=== PATIENT | male | born 1955 | race Caucasian/White ===

== ENCOUNTER 2017-12-28 09:49 | Emergency (ER) | payer OTHER ==
[~2017-12-28] VITALS: Ht 188 cm; Wt 99.2 kg
[2017-12-28 09:55] VITALS: BP 175/73; PULSE 93; RESP 16; TEMP 97.3; O2SAT 100
[2017-12-28] MEDS ORDERED: ROBA750T PO (10:21)
[2017-12-28] MEDS ORDERED: IBUP1TAB7 PO (10:21)
--- NOTE | 2017-12-28 10:22 | PD ---
HPI Chief Complaint: Back/ Neck Pain or Injury Time Seen by Provider: 10:06 Travel History International Travel<30 days: No Contact w/Intl Traveler<30days: No Traveled to known affect area: No History of Present Illness HPI This is a 62-year-old male with right-sided low back pain radiating down into the right leg. He reports this is "sciatica". He has had 2 similar episodes in the past. He was krystal several days ago when he twisted his back and had immediate pain in his right buttocks region. He reports the pain radiates down into the leg. No paresthesia or weakness. No fever chills. No incontinence. No saddle or seizure. He has moderate. Elevated by movement and slightly depressed. PFSH Past Medical History Medical History: Denies Significant Hx Tetanus Vaccination: > 5 Years Influenza Vaccination: No Past Surgical History Surgical History: No Previous Surgery Social History Alcohol Use: Yes (WEEKLY) Tobacco Use: No Substance Use: No Allergies-Medications (Allergen,Severity, Reaction): Coded Allergies: No Known Allergies (Unverified , 12/28/17) Reported Meds & Prescriptions Reported Meds & Active Scripts Active Robaxin (Methocarbamol) 750 Mg Tab 750 Mg PO QID Ibuprofen 800 Mg Tab 800 Mg PO Q6HR PRN Review of Systems Except as stated in HPI: all other systems reviewed are Neg General / Constitutional: No: Fever Eyes: No: Visual changes HENT: No: Headaches Cardiovascular: No: Chest Pain or Discomfort Respiratory: No: Shortness of Breath Gastrointestinal: No: Abdominal Pain Genitourinary: No: Dysuria Musculoskeletal: Positive: Pain (right low back) Neurologic: No: Weakness Physical Exam Narrative GENERAL: Alert and well-appearing 60-year-old male. SKIN: Warm and dry. HEAD: Normocephalic. EYES: No injection or drainage. NECK: Supple, trachea midline. No JVD or lymphadenopathy. CARDIOVASCULAR: Regular rate and rhythm RESPIRATORY: Breath sounds equal bilaterally. No accessory muscle use. GASTROINTESTINAL: Abdomen soft, non-tender, nondistended. No rebound or guarding MUSCULOSKELETAL: No cyanosis, or edema. Normal strength and sensation in the lower extremities. She is ambulatory with a steady gait. BACK: +TTP over right sacroiliac joint. No lumbar spine tenderness. Without obvious deformity. No CVA tenderness. Data Data Last Documented VS Vital Signs Date Time Temp Pulse Resp B/P (MAP) Pulse Ox O2 Delivery O2 Flow Rate FiO2 12/28/17 09:55 97.3 93 16 175/73 (107) 100 Orders Orders Ed Discharge Order (12/28/17 10:22) Ketorolac Inj (Toradol Inj) (12/28/17 10:30) MDM Medical Decision Making Medical Screen Exam Complete: Yes Emergency Medical Condition: Yes Differential Diagnosis Sciatica, lumbar strain, SI joint pain Narrative Course This is a 62-year-old male here with acute sciatica pain. He has a normal neurologic exam. His pain is similar to his previous sciatica. He'll be treated with a shot of Toradol. Discharged home with ibuprofen and muscle relaxers. Diagnosis Primary Impression: Sciatica Qualified Codes: M54.31 - Sciatica, right side Referrals: Primary Care Physician Departure Forms: Tests/Procedures, Work Release Enter return to work date: Jan 01, 2018 Additional Instructions: Avoid heavy lifting or strenuous activity. Medications as prescribed. Return if he developed new or worsening symptoms Scripts Methocarbamol (Robaxin) 750 Mg Tab 750 MG PO QID for Muscle Spasm, #12 TAB 0 Refills Prov: Gabbi Seaman 12/28/17 Ibuprofen (Ibuprofen) 800 Mg Tab 800 MG PO Q6HR Y for PAIN, #40 TAB 0 Refills Prov: Gabbi Seaman 12/28/17 Disposition: 01 DISCHARGE HOME Condition: Stable Gabbi Seaman Dec 28, 2017 10:21
[2017-12-28] MEDS ORDERED: KETOROLAC TROMETHAMINE 60 MG/2 ML (IM) VIAL IM ONE (10:30)
== END 2017-12-28 10:40 | disposition home or self-care (01) ==
LOC: PHEFT 09:49
DX: M54.31 Sciatica, right side (principal)
CPT/HCPCS: 96372; 99283; J1885

== ENCOUNTER 2018-01-01 09:53 | Emergency (ER) | payer OTHER ==
[~2018-01-01] VITALS: Ht 185.4 cm; Wt 98.7 kg
[~2018-01-01 09:53] MED LIST: IBUP1TAB7 PO; ROBA750T PO
[2018-01-01 10:05] VITALS: BP 181/123; PULSE 86; RESP 16; TEMP 98.3; O2SAT 99
--- NOTE | 2018-01-01 10:59 | PD ---
HPI Chief Complaint: Back/ Neck Pain or Injury Time Seen by Provider: 10:46 Travel History International Travel<30 days: No Contact w/Intl Traveler<30days: No Traveled to known affect area: No History of Present Illness HPI 62-year-old male presents to the emergency room for evaluation of right-sided sciatica. Patient had severe pain about 4 days ago for which he came to the emergency room. He was treated with Toradol and muscle relaxers. States he feels significantly improved since then but he is not ready to go back to work because his pain is still dull, constant, aching. States he feels as though if he goes back to work it he will reinjure his back. He is requesting a few more days off. He denies any numbness or tingling, loss of bowel or bladder control , IV drug use, weight loss, or night sweats. He has been taking his previously prescribed ibuprofen and Flexeril with significant improvement in symptoms. PFSH Past Medical History Diminished Hearing: No Tetanus Vaccination: Unknown Social History Alcohol Use: Yes (WEEKLY) Tobacco Use: No Substance Use: No Allergies-Medications (Allergen,Severity, Reaction): Coded Allergies: No Known Allergies (Unverified , 01/01/18) Reported Meds & Prescriptions Reported Meds & Active Scripts Active No Active Prescriptions or Reported Medications Review of Systems Except as stated in HPI: all other systems reviewed are Neg Physical Exam Narrative GENERAL: Well-nourished, well-developed male in no acute distress. Afebrile. Ambulate 3. SKIN: Focused skin assessment warm/dry. HEAD: Normocephalic. EYES: No scleral icterus. No injection or drainage. NECK: Supple, trachea midline. No JVD or lymphadenopathy. CARDIOVASCULAR: Regular rate and rhythm without murmurs, gallops, or rubs. RESPIRATORY: Breath sounds equal bilaterally. No accessory muscle use. BACK: Nontender without obvious deformity. No CVA tenderness. 2+ patellar and Achilles reflexes are equal bilaterally. Data Data Last Documented VS Vital Signs Date Time Temp Pulse Resp B/P (MAP) Pulse Ox O2 Delivery O2 Flow Rate FiO2 01/01/18 10:05 98.3 86 16 181/123 (142) 99 MDM Medical Decision Making Medical Screen Exam Complete: Yes Emergency Medical Condition: Yes Medical Record Reviewed: Yes Differential Diagnosis Strain, sprain, contusion, sciatica Narrative Course 62-year-old male presents to the emergency room for evaluation of right-sided sciatica recheck. He was here 4 days ago for the same. Reports significant improvement in symptoms. States he is afraid to go back to work because he does not want to reinjure his back. He is requesting a few more days off. Patient has no focal neurological deficits. No red flag symptoms. No indication for imaging. He was told to continue taking his prescribed medications and follow up with primary care physician or return if worsening symptoms. Given 3 additional days off work. Told to return for worsening symptoms. He understands and agrees to plan. Diagnosis Primary Impression: Right sided sciatica Referrals: Primary Care Physician Departure Forms: Tests/Procedures, Work Release Enter return to work date: Jan 04, 2018 Additional Instructions: Rest and drink plenty of fluids. Take ibuprofen with food as directed, as needed for pain. Apply ice to the affected area for 20 minutes at a time, as needed for pain and swelling. Follow-up with a primary care physician. Return to the emergency room for worsening symptoms. Med/Other Pt SpecificInfo: Prescription(s) given Scripts No Active Prescriptions or Reported Meds Disposition: 01 DISCHARGE HOME Condition: Stable Latesha Roe Jan 01, 2018 10:59
== END 2018-01-01 11:47 | disposition home or self-care (01) ==
LOC: PHEFT 09:53
DX: M54.31 Sciatica, right side (principal)
CPT/HCPCS: 99282

== ENCOUNTER 2018-01-15 09:12 | Emergency (ER) | payer OTHER ==
[~2018-01-15] VITALS: Ht 185.4 cm; Wt 98.0 kg
[2018-01-15 09:22] VITALS: BP 193/115; PULSE 106; RESP 20; TEMP 98.3; O2SAT 98
[2018-01-15] MEDS ORDERED: DEXAMETHASONE SOD PHOS 20 MG/5 ML VIAL IV PUSH ONE (09:45)
[2018-01-15] MEDS ORDERED: DEXAMETHASONE SOD PHOS 20 MG/5 ML VIAL IM ONE (10:00)
--- NOTE | 2018-01-15 10:01 | RADRPT ---
EXAM DATE/TIME: 01/15/2018 09:40 [facility] COMPARISON: No previous studies available for comparison. INDICATIONS : Right side hip/leg pain after injuring it approximately 2-3 weeks ago. MEDICAL HISTORY : None. SURGICAL HISTORY : None. ENCOUNTER: [facility] ACUITY: 3 weeks PAIN SCORE: 8/10 LOCATION: Right hip/pelvis FINDINGS: Examination of the right hip was performed with AP Pelvis. The primary and secondary trabecular jesu babs of the femoral neck is intact. The hip joint is of normal width without significant sclerosis or bony hypertrophy. The acetabulum is grossly intact. CONCLUSION: Unremarkable right hip. Rex Heard MD on January 15, 2018 at 10:00 Board Certified Radiologist. This report was verified electronically.
--- NOTE | 2018-01-15 10:01 | RADRPT ---
EXAM DATE/TIME: 01/15/2018 09:40 [facility] COMPARISON: No previous studies available for comparison. INDICATIONS : Right side lumbar/sciatica pain radiating down right leg after injuring it approximately 2-3 weeks ag o. MEDICAL HISTORY : None. SURGICAL HISTORY : None. ENCOUNTER: [facility] ACUITY: 3 weeks PAIN SCORE: 8/10 LOCATION: Right lumbar spine FINDINGS: There are five non-rib bearing vertebral bodies. The vertebral bodies are in normal alignment withou t evidence of subluxation or scoliosis. The disc spaces are maintained. There is spondylolysis of th e posterior elements on the left at L5. Prominent endplate osteophytes at multiple levels greatest on the right at L2-3. CONCLUSION: 1. 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 2. Degenerative changes. Rex Heard MD on January 15, 2018 at 9:58 Board Certified Radiologist. This report was verified electronically.
--- NOTE | 2018-01-15 10:02 | PD ---
HPI Chief Complaint: Pain: Acute or Chronic Time Seen by Provider: 09:28 Travel History International Travel<30 days: No Contact w/Intl Traveler<30days: No Traveled to known affect area: No History of Present Illness HPI 62-year-old male that presents to the ED for evaluation of right leg pain and sciatica. Per patient he has a history of this in the past. He has had 2 episodes of this in the past and this is his third one. He has been seen here twice this month alone for evaluation of the same. He denies any numbness, tingling, weakness. Per patient the pain on the back has improved but he still has it on the right leg and he is not sure if he did something to her to make it worse. Per patient he does do a lot of heavy lifting for work and a lot of twisting and bending and he was out of work for about a week and a half to try to make the symptoms better which they did but he went back to work about 2 days ago and the pain came back again. He has not been able to make an appointment with his primary care doctor. He states that his pain currently say out of 10. Denies any numbness, tingling, weakness. No urinary or bowel movement issues. Has not had any imaging. Has no allergies to medication. Has not seen anybody else for this. PFSH Past Medical History Diminished Hearing: No Tetanus Vaccination: Unknown Influenza Vaccination: No Past Surgical History Surgical History: No Previous Surgery Social History Alcohol Use: Yes (WEEKLY) Tobacco Use: No Substance Use: No Allergies-Medications (Allergen,Severity, Reaction): Coded Allergies: No Known Allergies (Unverified , 01/01/18) Reported Meds & Prescriptions Reported Meds & Active Scripts Active Prednisone 20 Mg Tab 20 Mg PO BID 5 Days Hydrocodone-Acetamin 5-325 mg (Hydrocodone/Acetaminophen) 5 Mg-325 Mg Tablet 1 Tab PO Q6HR PRN Review of Systems Except as stated in HPI: all other systems reviewed are Neg Physical Exam Narrative GENERAL: SKIN: Warm and dry. HEAD: Atraumatic. Normocephalic. EYES: Pupils equal and round. No scleral icterus. No injection or drainage. ENT: No nasal bleeding or discharge. Mucous membranes pink and moist. NECK: Trachea midline. No JVD. CARDIOVASCULAR: Regular rate and rhythm. RESPIRATORY: No accessory muscle use. Clear to auscultation. Breath sounds equal bilaterally. GASTROINTESTINAL: Abdomen soft, non-tender, nondistended. Hepatic and splenic margins not palpable. MUSCULOSKELETAL: Extremities without clubbing, cyanosis, or edema. No obvious deformities. Straight leg test negative on the right leg and left leg. Limping gait on the right side compared to the left. Full range of motion of the upper and lower extremities bilaterally. 2+ pulses bilaterally. No lumbar , thoracic, cervical spine tenderness to palpation. Sensation intact bilaterally. NEUROLOGICAL: Awake and alert. No obvious cranial nerve deficits. Motor grossly within normal limits. Five out of 5 muscle strength in the arms and legs. Normal speech. PSYCHIATRIC: Appropriate mood and affect; insight and judgment normal. Data Data Last Documented VS Vital Signs Date Time Temp Pulse Resp B/P (MAP) Pulse Ox O2 Delivery O2 Flow Rate FiO2 01/15/18 09:22 98.3 106 20 193/115 (141) 98 Orders Orders Spine, Lumbar Comp W/Obliq (01/15/18 ) Hip, Uni(Ap&Lat) W Ap Pelvis (01/15/18 ) Dexamethasone Inj (Decadron Inj) (01/15/18 09:45) Dexamethasone Inj (Decadron Inj) (01/15/18 10:00) Ed Discharge Order (01/15/18 10:13) MDM Medical Decision Making Medical Screen Exam Complete: Yes Emergency Medical Condition: Yes Medical Record Reviewed: Yes Interpretation(s) xray of lumbar spine showed spondylolysis xray of left hip showed no sign of acute bony injury Differential Diagnosis Sciatica versus muscle strain versus muscle spasm versus radiculopathy versus lumbar strain versus fracture Narrative Course 62-year-old male that presents to the ED for evaluation of right leg pain. Patient was properly examined and was found to have signs and symptoms very consistent appears to be sciatica. Likely worsened because of continuing his work. Patient will have imaging has patient has not had imaging of his symptoms that appear to be improved. X-rays were done and did not show a compression fracture or significant arthritis. Patient was given additional dexamethasone as patient states that his Toradol did not work very well for him. At this time I think we will try continuation of anti-inflammatories, I' ll add steroids to see if this will help symptoms faster as well as Lortab for pain. Patient was told to follow closely with PCP. See ED worsening symptoms. Diagnosis Primary Impression: Sciatica of right side Additional Impression: Spondylolysis of lumbar region Patient Instructions: General Instructions Departure Forms: Tests/Procedures, Work Release Enter return to work date: Feb 05, 2018 Additional Instructions: Take medications as prescribed. Follow-up with PCP. See ED for any worsening symptoms. Do not drink or drive while taking pain medication. Apply ice or heat as needed for pain Med/Other Pt SpecificInfo: Prescription(s) given Scripts Prednisone (Prednisone) 20 Mg Tab 20 MG PO BID for 5 Days, #10 TAB 0 Refills Prov: Nelson Sullivan MD 01/15/18 Hydrocodone/Acetaminophen (Hydrocodone-Acetamin 5-325 mg) 5 Mg-325 Mg Tablet 1 TAB PO Q6HR Y for PAIN SCALE 1 TO 10, #14 Prov: Nelson Sullivan MD 01/15/18 Disposition: 01 DISCHARGE HOME Condition: Stable Yash Sandhu Jan 15, 2018 10:02
[2018-01-15] MEDS ORDERED: HYDR-3516 PO (10:12)
[2018-01-15] MEDS ORDERED: PRED20 PO (10:12)
== END 2018-01-15 10:45 | disposition home or self-care (01) ==
LOC: PHEFT 09:12
DX: M54.31 Sciatica, right side (principal); M43.06 Spondylolysis, lumbar region
CPT/HCPCS: 72110; 73502; 96372; 99283; J1100